=== PATIENT | female | born 1985 | race Two or more races ===

== ENCOUNTER 2017-04-21 09:23 | Inpatient (IN) | payer OTHER ==
[2017-04-21 15:07] VITALS: BMI 30.2
[2017-04-21 16:41] LABS: BASO % 0.2 % (0-2.0); EOS % 1.9 % (0-4.5); HEMATOCRIT 40.2 % (32.4-45.2); HEMOGLOBIN 13.1 GM/dL (10.7-15.3); LYMPH % 18.6 % (8-40); MCHC 32.4 g/dl (32.0-36.0); MEAN CELL VOLUME 89.4 fl (80-96); MEAN PLT VOLUME 9.1 fl (7.5-11.1); MONO % 7.2 % (3.8-10.2); NEUT % 72.1 % (42.8-82.8); PLATELET COUNT 232 K/MM3 (134-434); RDW 15.8 % (11.6-15.6); WHITE BLOOD COUNT 6.7 K/mm3 (4.0-10.0)
[2017-04-21 16:58] LABS: INR 0.92 (0.82-1.09); PROTHROMBIN TIME (PATIENT) 10.4 SEC (9.98-11.88)
[2017-04-21 17:42] LABS: ANION GAP 9 (8-16); BLOOD UREA NITROGEN 7 mg/dL (7-18); CALCIUM 8.3 mg/dL (8.5-10.1); CHLORIDE 106 mmol/L (98-107); CO2 22 mmol/L (21-32); CREATININE 0.5 mg/dL (0.55-1.02); GLUCOSE,RANDOM 72 mg/dL (74-106); SODIUM 137 mmol/L (136-145)
[2017-04-21] MEDS ORDERED: OXYTOCIN 30 UNITS in 0.9% NS 30 UNIT/500 ML INFUS.BAG IVPB SCH (17:45)
[2017-04-21] MEDS ORDERED: DEXTROSE 5%-LACTATED RINGERS 1,000 ML IV SCH (17:45)
--- NOTE | 2017-04-21 17:58 | HP ---
Past Medical History - Primary Care Physician PCP:: Claudio Willingham - Admission Chief Complaint: pregnacy 38weeks, labor History Source: Patient Limitations to Obtaining History: No Limitations - Past Medical History ...: 3 ...Para: 2 ...Term: 2 ...: 0 ...Spon : 0 ...Induced : 0 ...Multiple Gestation: 0 ...LMP: 07/24/16 ... Weeks Gestation by Dates: 38.5 ...EDC by Dates: 04/30/17 ...EDC by Sono: 04/30/17 Additional OB History: 2 full term - Past Surgical History Hx Myomectomy: No Hx Transabdominal Cerclage: No - Smoking History Smoking history: Never smoked Have you smoked in the past 12 months: No - Alcohol/Substance Use Hx Alcohol Use: No - Social History Usual Living Arrangement: Yes: With Spouse History of Recent Travel: No Home Medications - Allergies Allergies/Adverse Reactions: Allergies Allergy/AdvReac Type Severity Reaction Status Date / Time No Known Allergies Allergy Verified 04/21/17 13:37 - Home Medications Home Medications: Ambulatory Orders Iron 1 tab PO DAILY 04/21/17 Vitamins (Sjr) - 1 tab PO DAILY 04/21/17 Review of Systems - Review of Systems Constitutional: reports: No Symptoms Eyes: reports: No Symptoms HENT: reports: No Symptoms Cardiovascular: reports: No Symptoms Respiratory: reports: No Symptoms Gastrointestinal: reports: No Symptoms Genitourinary: reports: No Symptoms Breasts: reports: No Symptoms Reported Musculoskeletal: reports: No Symptoms Integumentary: reports: No Symptoms Neurological: reports: No Symptoms Endocrine: reports: No Symptoms Hematology/Lymphatic: reports: No Symptoms Psychiatric: reports: No Symptoms Physical Exam - Maternity Vital Signs: Vital Signs Temperature 97.7 F 04/21/17 16:00 Pulse Rate 80 04/21/17 17:00 Respiratory Rate 20 04/21/17 17:00 Blood Pressure 101/66 04/21/17 17:00 O2 Sat by Pulse Oximetry (%) Constitutional: Yes: Well Nourished, No Distress, Calm Eyes: Yes: WNL, Conjunctiva Clear, EOM Intact HENT: Yes: WNL, Atraumatic, Normocephalic Neck: Yes: WNL, Supple, Trachea Midline Cardiovascular: Yes: WNL, Regular Rate and Rhythm Breast(s): Yes: WNL - Abdominal Exam/OB Number of Fetuses: Single Presentation: Vertex Contractions: Yes Regularity: Irregular Intensity: Mod/Strong Monitor Mode: External Heart Rate Location: [facility] Category: I Accelerations: Uniform Decelerations: None - Vaginal Exam/OB Vaginal Bleediing: Bloody Show Speculum Exam: No Dilatation (cm): 2 to 3 Effacement (%): 80 Amniotic Membrane Status: Bulging Presentation: Vertex/Position Station: -2 - Physical Exam Edema: Yes Edema: LLE: Trace, RLE: Trace Deep Tendon Reflex Grade: Normal +2 ...Motor Strength: WNL Psychiatric: Yes: WNL - Labs Lab Results: CBC, BMP 04/21/17 16:00 04/21/17 16:00 Hemorrhage Risk Assessment - Risk Factors Medium Risk Factors: Yes: None High Risk Factors: Yes: None Risk Score: 1 Risk Level: Medium Risk Problem List - Problems (1) with 38 completed weeks gestation Code(s): Z3A.38 - 38 WEEKS GESTATION OF (2) Labor established Code(s): [id number] - Assessment/Plan admit , fhm, if irregular contraction advised pitocin, rba discussed
[2017-04-21] MEDS ORDERED: PROMETHAZINE HCL 25 MG/1 ML VIAL IVPUSH ONE (18:00)
[2017-04-21] MEDS ORDERED: BUTORPHANOL TARTRATE 1 MG/ML VIAL IVPUSH ONE (18:00)
[2017-04-22] MEDS ORDERED: BUTORPHANOL TARTRATE 1 MG/ML VIAL ONE ×2 (00:33)
[2017-04-22] MEDS ORDERED: PROMETHAZINE HCL 25 MG/1 ML VIAL ONE (00:34)
[2017-04-22] MEDS ORDERED: OXYTOCIN 20 UNITS in 0.9% NS 20 UNIT/1,000 ML INFUS.BAG IV ONE ×2 (08:33→12:13)
--- NOTE | 2017-04-22 08:37 | PN ---
Progress Note (short form) - Note Progress Note: cx 5 cm 80 vx -1 arom ,clear , fhr cat1,regular contraction, on pitocin Problem List - Problems (1) with 38 completed weeks gestation Code(s): Z3A.38 - 38 WEEKS GESTATION OF (2) Labor established Code(s): NZQ2703 -
[2017-04-22] MEDS ORDERED: FENTANYL/BUPIVACAINE/NS/PF - PCEA - 50 ML DISP.SYRIN EP ONE (08:59)
[2017-04-22] MEDS ORDERED: NALOXONE HCL 0.4 MG/ML VIAL IVPUSH PRN (09:22)
[2017-04-22] MEDS ORDERED: FENTANYL/BUPIVACAINE/NS/PF - PCEA - 50 ML DISP.SYRIN EP SCH (09:30)
--- NOTE | 2017-04-22 09:47 | PN ---
Progress Note (short form) - Note Progress Note: xc 7 cm 80 vx 0 ,mr, fhr cat 1 Problem List - Problems (1) with 38 completed weeks gestation Code(s): Z3A.38 - 38 WEEKS GESTATION OF (2) Labor established Code(s): KSC7352 -
[2017-04-22] MEDS ORDERED: PRENATAL VITAMINS W/ FOLIC ACID TABLET (FP) PO SCH (10:00)
[2017-04-22] MEDS: OXYTOCIN 20 UNITS in 0.9% NS 20 UNIT/1,000 ML INFUS.BAG IV SCH ×2 (10:38→12:15)
[2017-04-22] MEDS ORDERED: METHYLERGONOVINE MALEATE 0.2 MG/1 ML AMP IM PRN (10:48)
[2017-04-22] MEDS ORDERED: BENZOCAINE 20% 57 GM BOTTLE TP PRN (10:48)
[2017-04-22] MEDS ORDERED: BENZOCAINE 28 GM HEMORRHOIDAL OINTMENT TP PRN (10:48)
[2017-04-22] MEDS ORDERED: BISACODYL 10 MG SUPP.RECT RC PRN (10:48)
[2017-04-22] MEDS ORDERED: WITCH HAZEL 50% (TUCKS) 40 PAD/JAR PAD TP PRN (10:48)
[2017-04-22] MEDS ORDERED: D5W-LR W/ 20 UNITS OXYTOCIN 1,000 ML IV SCH (11:00)
[2017-04-22] MEDS: IBUPROFEN 600 MG TABLET (FP) PO PRN ×2 (11:15→20:18)
[2017-04-22] MEDS: ACETAMINOPHEN 325 MG TABLET (FP) PO PRN ×2 (11:15→20:18)
[2017-04-22] MEDS: FERROUS SO4 325 MG TABLET (FP) PO SCH (22:59)
[2017-04-23] MEDS: IBUPROFEN 600 MG TABLET (FP) PO PRN (05:35)
[2017-04-23] MEDS: ACETAMINOPHEN 325 MG TABLET (FP) PO PRN ×2 (05:36→16:21)
[2017-04-23 08:49] LABS: BASO % 0.1 % (0-2.0); EOS % 0.9 % (0-4.5); HEMATOCRIT 34.8 % (32.4-45.2); HEMOGLOBIN 11.5 GM/dL (10.7-15.3); LYMPH % 15.6 % (8-40); MCH 29.1 pg (25.7-33.7); MEAN CELL VOLUME 88.2 fl (80-96); MEAN PLT VOLUME 8.4 fl (7.5-11.1); MONO % 4.5 % (3.8-10.2); NEUT % 78.9 % (42.8-82.8); PLATELET COUNT 202 K/MM3 (134-434); RBC 3.95 M/mm3 (3.60-5.2); RDW 15.7 % (11.6-15.6); WHITE BLOOD COUNT 11.9 K/mm3 (4.0-10.0)
[2017-04-23] MEDS: PRENATAL VITAMINS W/ FOLIC ACID TABLET (FP) PO SCH (09:22)
[2017-04-23] MEDS: FERROUS SO4 325 MG TABLET (FP) PO SCH ×2 (09:22→20:59)
--- NOTE | 2017-04-23 14:35 | PN ---
Progress Note (short form) - Note Progress Note: ppd 1 doing well, no c/o abdomen soft , uterus firm, non tender lochia mild no calf tenderness CBC, BMP 04/23/17 08:00 04/21/17 16:00 Last Vital Signs Temp Pulse Resp BP Pulse Ox 97.8 F 68 18 92/48 100 04/23/17 07:20 04/23/17 07:20 04/23/17 07:20 04/23/17 07:20 04/22/17 11:30 plan for d/c home in am Problem List - Problems (1) with 38 completed weeks gestation Code(s): Z3A.38 - 38 WEEKS GESTATION OF (2) Labor established Code(s): [id number] -
[2017-04-23] MEDS ORDERED: SENNOSIDES/DOCUSATE COMBO (SENNA PLUS) TABLET (UD) PO PRN (22:00)
--- NOTE | 2017-04-24 05:36 | DS ---
Physical Exam-[employer] Vital Signs: Vital Signs Temperature 97.8 F 04/23/17 20:51 Pulse Rate 72 04/23/17 20:51 Respiratory Rate 18 04/23/17 20:51 Blood Pressure 112/66 04/23/17 20:51 O2 Sat by Pulse Oximetry (%) 100 04/22/17 11:30 Constitutional: Yes: Well Nourished, No Distress, Calm Eyes: Yes: WNL, Conjunctiva Clear, EOM Intact HENT: Yes: WNL, Atraumatic, Normocephalic Neck: Yes: WNL, Supple, Trachea Midline Cardiovascular: Yes: WNL, Regular Rate and Rhythm Respiratory: Yes: WNL, Regular, CTA Bilaterally Gastrointestinal: Yes: WNL ...Rectal Exam: Yes: WNL Renal/: Yes: WNL ....Post : Yes: Uterus firm, Uterus non-tender, Slight lochia rubra Breast(s): Yes: WNL Musculoskeletal: Yes: WNL Extremities: Yes: WNL Edema: LLE: Trace, RLE: Trace Integumentary: Yes: WNL Neurological: Yes: WNL, Alert, Oriented ...Motor Strength: WNL Psychiatric: Yes: WNL, Alert, Oriented Labs: CBC, BMP 04/23/17 08:00 04/21/17 16:00 Delivery - Delivery Vaginal Delivery: Spontaneous (no complication) Type of Anesthesia: Epidural Episiotomy/Laceration: None EBL (cc): 300 Delivery, Single - Stages of Labor Date 1st Stage Initiatied: 04/21/17 Time 1st Stage Initiated: 06:00 Date 2nd Stage Initiated: 04/22/17 Time 2nd Stage Initiated: 10:22 Date of Delivery: 04/22/17 Time of Delivery: 10:35 Time Placenta Delivered: 10:38 Placenta: Yes: Spontaneous - 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 Infant Gender: Male Weight: 6 lb 4 oz Position: Left, OA Total Hours ROM (Hrs/Mins): 2hrs 16min - 1 Minute Total Score: 9 5 Minutes Total Score: 9 - Feeding Plan Initial Plan: Elected not to breastfeed exclusively throughout hospitalization Discharge Summary Reason For Visit: LABOR ADMISSION Current Active Problems Labor established (Acute) with 38 completed weeks gestation (Acute) Procedures: Principal: Hospital Course: no complication Condition: Good - Instructions Diet, Activity, Other Instructions: regular diet, no intercourse, follow up [facility] care 4 weeks Referrals: Claudio Willingham MD [Staff Physician] - Disposition: HOME - Home Medications Comprehensive Discharge Medication List: Ambulatory Orders Iron 1 tab PO DAILY 04/21/17 Vitamins (Sjr) - 1 tab PO DAILY 04/21/17 Ibuprofen [Motrin -] 600 mg PO QID #28 tablet 04/23/17
[2017-04-24 08:06] VITALS: BP 98/58; PULSE 74; TEMP 98.6
[2017-04-24] MEDS: PRENATAL VITAMINS W/ FOLIC ACID TABLET (FP) PO SCH (09:13)
[2017-04-24] MEDS: FERROUS SO4 325 MG TABLET (FP) PO SCH (09:13)
== END 2017-04-24 11:50 | disposition home or self-care (01) | DRG 560 ==
LOC: JDEL 09:23 → JLDR 14:15 → J3W 04-22 12:40
PROVIDERS: ADMIT Obstetrics & Gynecology; ATTEND Obstetrics & Gynecology
PROC: 10E0XZZ Delivery of Products of Conception, External Approach (ICD-10-PCS; principal; 2017-04-22)
DX: O80 Encounter for full-term uncomplicated delivery (principal); Z3A.38 38 weeks gestation of pregnancy; Z37.0 Single live birth
CPT/HCPCS: 36415; 59409; 80048; 85025; 85610; 85730; 86593; 86850; 86900; 86901

== ENCOUNTER 2021-03-03 10:08 | Emergency (ER) | payer OTHER ==
[2021-03-03 10:16] VITALS: BP 106/65; PULSE 61; TEMP 97.8; BMI 26.2
[2021-03-03] MEDS ORDERED: AMOX TR/POT CLAV 875MG/125MG TABLETS (FP) PO ONE (10:52)
[2021-03-03] MEDS ORDERED: RABIES VACCINE (PCEC)/PF 2.5 UNIT/VIAL IM ONE ×2 (10:52→11:12)
[2021-03-03] MEDS ORDERED: RABIES IMMUNE GLOBULIN 300 UNITS/1 ML VIAL IM ONE (10:53)
[2021-03-03] MEDS ORDERED: DIPHTH,PERTUSS(ACELL),TET 0.5 ML DISP.SYRIN IM ONE ×2 (11:07→11:12)
[2021-03-03] MEDS ORDERED: AMOX TR/POT CLAV 875MG/125MG TABLETS (FP) ONE (11:12)
[2021-03-03] MEDS ORDERED: BACITRACIN 15 GM TUBE TOPICAL OINTMENT ONE (11:13)
== END 2021-03-03 12:31 | disposition home or self-care (01) ==
LOC: JERFT 10:08
PROC: 3E0234Z Introduction of Serum, Toxoid and Vaccine into Muscle, Percutaneous Approach (ICD-10-PCS; principal; 2021-03-03)
PROC: 3E0234Z Introduction of Serum, Toxoid and Vaccine into Muscle, Percutaneous Approach (ICD-10-PCS; 2021-03-03)
DX: S80.811A Abrasion, right lower leg, initial encounter (principal); W54.0XXA Bitten by dog, initial encounter
CPT/HCPCS: 90375; 90471; 90675; 90715; 99284-25

== ENCOUNTER 2021-03-06 11:34 | Emergency (ER) | payer OTHER ==
[2021-03-06 11:42] VITALS: BP 101/56; PULSE 71; TEMP 97.4; BMI 29.9
[2021-03-06] MEDS ORDERED: RABIES VACCINE (PCEC)/PF 2.5 UNIT/VIAL IM ONE ×2 (11:47→11:53)
== END 2021-03-06 12:15 | disposition home or self-care (01) ==
LOC: JERFT 11:34
PROC: 3E0234Z Introduction of Serum, Toxoid and Vaccine into Muscle, Percutaneous Approach (ICD-10-PCS; principal; 2021-03-06)
DX: Z20.3 Contact with and (suspected) exposure to rabies (principal)
CPT/HCPCS: 90675; 99283-25

== ENCOUNTER 2021-03-13 09:41 | Emergency (ER) | payer OTHER ==
[2021-03-13] MEDS ORDERED: RABIES VACCINE (PCEC)/PF 2.5 UNIT/VIAL IM ONE ×2 (10:11→10:19)
[2021-03-13 10:15] VITALS: BP 98/63; PULSE 61; TEMP 98; BMI 29.9
== END 2021-03-13 10:26 | disposition home or self-care (01) ==
LOC: JER 09:41 → JERFT 09:41
PROC: 3E0234Z Introduction of Serum, Toxoid and Vaccine into Muscle, Percutaneous Approach (ICD-10-PCS; principal; 2021-03-13)
DX: Z29.14 Encounter for prophylactic rabies immune globulin (principal)
CPT/HCPCS: 90675; 99284-25

== ENCOUNTER 2021-03-20 09:34 | Emergency (ER) | payer OTHER ==
[2021-03-20 09:40] VITALS: BP 124/74; PULSE 68; TEMP 98.5; BMI 29.9
[2021-03-20] MEDS ORDERED: RABIES VACCINE (PCEC)/PF 2.5 UNIT/VIAL IM ONE ×3 (09:58→10:09)
== END 2021-03-20 10:18 | disposition home or self-care (01) ==
LOC: JERFT 09:34
PROC: 3E0234Z Introduction of Serum, Toxoid and Vaccine into Muscle, Percutaneous Approach (ICD-10-PCS; principal; 2021-03-20)
DX: Z29.14 Encounter for prophylactic rabies immune globulin (principal)
CPT/HCPCS: 90675; 99284-25

== ENCOUNTER 2022-07-10 11:31 | Emergency (ER) | payer OTHER ==
[2022-07-10 11:34] VITALS: BP 98/52; PULSE 74; RESP 18; TEMP 98; BMI 27.2
[2022-07-10] MEDS ORDERED: LIDOCAINE 5% TOPICAL PATCH TP ONE (12:29)
[2022-07-10] MEDS ORDERED: ACETAMINOPHEN 500 MG TABLET (FP) PO ONE (12:29)
[2022-07-10] MEDS ORDERED: LIDOCAINE 5% TOPICAL PATCH ONE (12:31)
[2022-07-10] MEDS ORDERED: ACETAMINOPHEN 500 MG TABLET (FP) ONE (12:31)
[2022-07-10 12:47] LABS: PH,URINE 6.5 (5.0-8.0); URINE APPEARANCE CLEAR; URINE BILIRUBIN NEGATIVE (NEGATIVE); URINE COLOR YELLOW; URINE GLUCOSE (UA) NEGATIVE (NEGATIVE); URINE KETONE NEGATIVE (NEGATIVE); URINE LEUK ESTERASE NEGATIVE (NEGATIVE); URINE NITRITE NEGATIVE (NEGATIVE); URINE PROTEIN NEGATIVE (NEGATIVE)
[2022-07-10 12:50] LABS: HCG,QUALITATIVE URINE Negative
[2022-07-10] MEDS ORDERED: METHOCARBAMOL 500 MG TABLET PO ONE (12:52)
[2022-07-10] MEDS ORDERED: KETOROLAC TROMETHAMINE 60 MG/2 ML VIAL IM ONE (12:52)
[2022-07-10] MEDS ORDERED: KETOROLAC TROMETHAMINE 30 MG/1 ML VIAL IM ONE (12:53)
[2022-07-10] MEDS ORDERED: KETOROLAC TROMETHAMINE 30 MG/1 ML VIAL ONE (12:54)
[2022-07-10] MEDS ORDERED: METHOCARBAMOL 500 MG TABLET ONE (12:54)
[2022-07-10] MEDS ORDERED: LIDOCAINE PATCH REMOVAL MC ONE (22:00)
== END 2022-07-10 13:42 | disposition home or self-care (01) ==
LOC: JERFT 11:31
PROC: 3E0233Z Introduction of Anti-inflammatory into Muscle, Percutaneous Approach (ICD-10-PCS; principal; 2022-07-10)
DX: M54.50 Low back pain, unspecified (principal); M79.604 Pain in right leg
CPT/HCPCS: 81003; 84703; 99284-25